=== PATIENT | female | born 1970 | race Caucasian/White ===

== ENCOUNTER 2017-01-23 16:15 | Emergency (ER) | payer MEDICARE, MEDICAID ==
[2017-01-23] MEDS ORDERED: ONDANSETRON HCL 4 MG/2 ML VIAL ONE (16:32)
[2017-01-23] MEDS ORDERED: ONDANSETRON ODT 4 MG TAB.RAPDIS ONE (16:34)
[2017-01-23] MEDS ORDERED: KETOROLAC TROMETHAMINE 30 MG/ML VIAL ONE (16:54)
[2017-01-23] MEDS ORDERED: LORazepam 2 MG/ML INJ ONE (16:55)
[2017-01-23] MEDS ORDERED: DIAZEPAM 10 MG/2 ML SYR ONE (17:02)
--- NOTE | 2017-01-23 17:28 | ER NURSING DOCUMENTATION ---
Nurse's Notes [facility] Name:Zarina Webber Age:46 yrs Sex:Female :1970 Arrival Date:01/23/2017 Time:16:09 Bed1 Private MD: Diagnosis:Chronic Back Pain Presentation: 01/23 16:14 Transition of care: patient was not received from another setting of care. tg 16:14 Acuity: LAURIE 4 tg 16:14 Method Of Arrival: EMS: 410 tg 16:14 Presenting complaint: EMS states: Pt has chronic back pain, but is out of vicodin and tg her PCP DC'd her valium recently. Triage Assessment: 16:28 General: Appears distressed, Behavior is anxious, cooperative. Pain: Complains of pain tg in back. Cardiovascular: Capillary refill < 3 seconds. Respiratory: Respiratory effort is even, unlabored. Musculoskeletal: Range of motion intact in all extremities. Historical: - Allergies: No known drug Allergies; - Home Meds: 1. Effexor Oral 2. Vicodin 5-500 mg oral tab 1 tab as needed for pain 3. levothyroxine oral 4. gabapentin oral 5. hydrocodone-acetaminophen 10-325 mg oral tab 1 tab every 6 hours for Pain - PMHx: DEPRESSION; CHRONIC PAIN; ASTHMA; OSTEOARTHRITIS; DEGENERATIVE DISC DISEASE; FIBROMYALGIA; MIGRAINES; HYPOTHYROIDISM; Herniated Disc (November 08, 2015); Chronic Back Pain (November 08, 2015); - PSHx: CHOLECYSECTOMY; ; TONSILLECTOMY; Multiple spinal and cervical fusions; Left Knee Surgery; - Tetanus: unknown. - Ebola Screening: : Patient negative for fever greater than or equal to 101.5 degrees Fahrenheit, and additional compatible Ebola Virus Disease symptoms. Patient denies exposure to infectious person. Patient denies travel to an Ebola-affected area in the 21 days before illness onset. No symptoms or risks identified at this time. . - Immunization history: Flu Vaccine unknown. - Social history: Smoking status: Patient uses tobacco products, current every day smoker. Screenin:16 Infectious Disease Risk Unable to Obtain. tg 16:30 Nutritional screening: No deficits noted. tg 17:25 Abuse screen: Unable to Obtain. tg Assessment: 16:30 See Triage Assessment done by same RN. tg 17:11 Reassessment: No changes from previously documented assessment. Pt sobbing, reports tg pain is severe. . Vital Signs: 16:12 BP 97 / 53 RA Sitting (auto/reg); Pulse 66 RA; Resp 16 S; Temp 98.4(O); Pulse Ox 97% on em3 R/A; Weight 55.34 kg (R); Height 5 ft. 7 in. (170.18 cm) (R); Pain 10/10; 17:08 BP 111 / 45; Pulse 73; Resp 18; Pulse Ox 93% on R/A; tg 16:12 Body Mass Index 19.11 (55.34 kg, 170.18 cm) em3 ED Course: 16:09 Patient arrived in ED. em3 16:13 Giovanny Kenney, RN is Primary Nurse. tg 16:13 Valuables Remains with patient Patient has correct armband on for positive em3 identification. Bed in low position. Call light in reach. Side rails up X2. 16:14 Gil Garcia MD is Attending Physician. guy 16:14 Triage completed. tg 17:07 Maintain field IV. Dressing intact. Gauge & site: 18g RAC. tg 17:11 [facility] is Referral Physician. guy Administered Medications: 16:26 Drug: Zofran 4 mg; Route: IVP; Infused Over: 2 mins; Site: right antecubital; tg 17:16 Follow up: Response: No adverse reaction tg 16:55 Drug: Valium 5 mg; Route: IVP; Site: right antecubital; tg 17:16 Follow up: Response: No adverse reaction; No change in condition tg 16:57 Drug: Toradol 30 mg; Route: IVP; Site: right antecubital; tg 17:16 Follow up: Response: No adverse reaction tg 17:00 CANCELLED (Physician Discretion): Ativan 1 mg IVP once tg Outcome: 17:12 Discharge ordered by . guy 17:23 Discharged to home ambulatory, with significant other. tg 17:23 Condition: unchanged 17:23 Discharge Assessment: Patient awake and alert. Pt still crying, understands that the ED will not dispense or prescribe narcotics per Dr. Garcia. Pt expressed desire to get new PCP to better manage her pain. 17:23 Discharge instructions given to patient, significant other, Instructed on discharge instructions, follow up and referral plans. 17:23 IV D/Ceasar 17:27 Patient left the ED. tg 01/25 12:36 Discharge F/U Call: Spoke with: patient. other: Name: pt has decided to switch PCPs st so she will not be following up with [facility] but has things in poroses for going to [facility]. pt denied having any questions or concerns. Signatures: Giovanny Kenney RN RN tg Twombly, Summer, RN RN st Meyer, John, MD MD jm Meiklejohn, Winston 3
--- NOTE | 2017-01-23 17:28 | ER PHYSICIAN DOCUMENTATION ---
Physician Documentation [facility] Name:Zarina Webber Age:46 yrs Sex:Female :1970 Arrival Date:01/23/2017 Time:16:09 Bed1 Private MD: Gil Gardiner Disposition: 01/23/17 17:12 Discharged to Home/Self Care. Impression: Chronic Back Pain. - Condition is Good. - Discharge Instructions: BACK PAIN (Acute or Chronic). - Medical Reconciliation form form. - Follow up: [facility]; When: Tomorrow; Reason: Continuance of care. - Problem is new. - Symptoms have improved. HPI: 01/23 18:05 This 46 yrs old Female presents to ER via EMS with complaints of Back Pain. 18:05 The patient presents with pain that is chronic. The symptoms are located in the low jm back. Associated signs and symptoms: Pertinent negatives: fever. Pt here b/c she ran out of hydrocodone. . Historical: - Allergies: No known drug Allergies; - Home Meds: 1. Effexor Oral 2. Vicodin 5-500 mg oral tab 1 tab as needed for pain 3. levothyroxine oral 4. gabapentin oral 5. hydrocodone-acetaminophen 10-325 mg oral tab 1 tab every 6 hours for Pain - PMHx: DEPRESSION; CHRONIC PAIN; ASTHMA; OSTEOARTHRITIS; DEGENERATIVE DISC DISEASE; FIBROMYALGIA; MIGRAINES; HYPOTHYROIDISM; Herniated Disc (November 08, 2015); Chronic Back Pain (November 08, 2015); - PSHx: CHOLECYSECTOMY; ; TONSILLECTOMY; Multiple spinal and cervical fusions; Left Knee Surgery; - Tetanus: unknown. - Ebola Screening: : Patient negative for fever greater than or equal to 101.5 degrees Fahrenheit, and additional compatible Ebola Virus Disease symptoms. Patient denies exposure to infectious person. Patient denies travel to an Ebola-affected area in the 21 days before illness onset. No symptoms or risks identified at this time. . - Immunization history: Flu Vaccine unknown. - Social history: Smoking status: Patient uses tobacco products, current every day smoker. ROS: 18:05 Constitutional: Negative for fever. jm 18:05 Back: Positive for pain at rest, pain with movement. 18:05 Neuro: Negative for dizziness, numbness, tingling. Exam: 18:05 Constitutional: The patient appears alert, awake, in obvious distress, moderately jm distressed. 18:05 Back: pain, that is moderate, of the lumbar area, ROM is decreased. 18:05 Neuro: Sensation: is normal, Gait: is steady. 18:05 Psych: Behavior/mood is pleasant, cooperative, anxious, Affect is animated. Vital Signs: 16:12 BP 97 / 53 RA Sitting (auto/reg); Pulse 66 RA; Resp 16 S; Temp 98.4(O); Pulse Ox 97% on em3 R/A; Weight 55.34 kg (R); Height 5 ft. 7 in. (170.18 cm) (R); Pain 10/10; 17:08 BP 111 / 45; Pulse 73; Resp 18; Pulse Ox 93% on R/A; tg 16:12 Body Mass Index 19.11 (55.34 kg, 170.18 cm) em3 MDM: 16:14 Patient medically screened. 18:08 Differential diagnosis: chronic back pain, chronic virk. Data reviewed: vital signs, nurses notes, old medical records, and as a result, I will discharge patient. Counseling: I had a detailed discussion with the patient and/or guardian regarding: the historical points, exam findings, and any diagnostic results supporting the discharge/admit diagnosis. Physician consultation: Sherry Mcghee regarding patient's condition, outpatient follow-up, and will see patient tomorrow, would like medications started, toradol- No narcs. . ED course: Pt very tearful and anxious. I told her her no narcotics per PCP's wishes and she flipped out. I was forced to give her Valium to calm her. Pt can f/u w Sherry tomorrow to discuss possible early refills of narcotics. . Dispensed Medications: 16:26 Drug: Zofran 4 mg; Route: IVP; Infused Over: 2 mins; Site: right antecubital; tg 17:16 Follow up: Response: No adverse reaction tg 16:55 Drug: Valium 5 mg; Route: IVP; Site: right antecubital; tg 17:16 Follow up: Response: No adverse reaction; No change in condition tg 16:57 Drug: Toradol 30 mg; Route: IVP; Site: right antecubital; tg 17:16 Follow up: Response: No adverse reaction tg 17:00 CANCELLED (Physician Discretion): Ativan 1 mg IVP once tg Signatures: Giovanny Kenney, RN RN tg Gil Garcia MD MD jm
== END 2017-01-23 17:28 | disposition home or self-care (01) ==
LOC: ER 16:15
DX: M54.9 Dorsalgia, unspecified (principal); G89.29 Other chronic pain; Z79.891 Long term (current) use of opiate analgesic; Z79.899 Other long term (current) drug therapy; Z74.3 Need for continuous supervision
CPT/HCPCS: 96374; 96375; 99283; A0425; A0429; J1885; J2060; J2405; J3360